=== PATIENT | male | born 1965 | race Caucasian/White ===

== ENCOUNTER 2019-11-05 10:37 | Emergency (ER) | payer OTHER ==
[~2019-11-05] VITALS: Ht 180.3 cm; Wt 111.1 kg
[~2019-11-05 10:37] MED LIST: HYDROCHLOROTHIA25 MG PO; VASOTEC10 M1 PO
--- NOTE | 2019-11-05 11:24 | Emergency Department Note ---
History of Present Illnes History of Present Illness Chief Complaint: General Medicine Complaints History of Present Illness This is a 54 year old male with edema of lips upper and lower Right side . Onset (how long ago): day(s) (1) Past Medical/Family History Physician Review I have reviewed the patient's past medical and family history. Any updates have been documented here. Past Medical History Other Medical History: CHRONIC BACK PAIN SLEEP APNEA HERPES Other Surgery: BACK OPERATIONS X 2 HERNIA Other Last Tetanus: UTD Physical Exam Related Data Allergies: Coded Allergies: No Known Allergies (Unverified , 03/05/15) Physical Exam CONSTITUTIONAL HENT EYES NECK PULMONARY CARDIOVASCULAR GASTROINTESTINAL GENITOURINARY SKIN MUSCULOSKELETAL NEUROLOGICAL PSYCHOLOGICAL Assessment & Plan Assessment & Plan Final Impression: (1) Angio-edema Home Meds Reported Medications Hydrochlorothiazide (HYDROCHLOROTHIAZIDE) 25 Mg Tablet, 25 MG PO DAILY, #30 TAB 07/12/14 Enalapril Maleate (VASOTEC) 10 Mg Tablet, 20 MG PO DAILY 07/12/14 MAGNUS JOSEPH DO Nov 05, 2019 11:24
[2019-11-05] MEDS ORDERED: PREDNISONE 20 MG TAB PO NR (11:30)
[2019-11-05] MEDS ORDERED: FAMOTIDINE 20 MG TAB PO ONE (11:30)
[2019-11-05] MEDS ORDERED: DIPHENHYDRAMINE HCL 25 MG CAP PO NR (11:30)
[2019-11-05] MEDS ORDERED: EPINEPHRINE HCL 1:1000 1ML 1 MG/ML AMP INJ ONE (11:30)
--- NOTE | 2019-11-05 14:51 | NUR ---
NO ANSWER AT THIS TIME
== END 2019-11-05 16:38 | disposition left against medical advice (07) ==
LOC: ER 12:11
DX: T78.3XXA Angioneurotic edema, initial encounter (principal)
CPT/HCPCS: J0171; J7512